=== PATIENT | female | born 1985 | race Caucasian/White ===

== ENCOUNTER 2017-02-02 17:51 | Emergency (ER) | payer OTHER ==
--- NOTE | 2017-02-02 19:41 | ED ORDER SUMMARY ---
..... Patient: GREY BOSTON OrderSheet [facility] VisitID: [id number] [place] [address] 31y, F Registration Date/Time: 02/02/2017 ORDER SHEET Weight: 47.6 kg (stated) Allergies: No Known Drug Allergy GENERAL ORDERS: Chest 2V Urgent (19:05 02/02/2017 HBivens A.R.N.P.) (Ack 19:09 LNations ER Tech1) (19:32 HBivens A.R.N.P.) (Cancelled: Other19:32 HBivens A.R.N.P.) EKG - ER Stat (19:05 02/02/2017 HBivens A.R.N.P.) (Ack 19:05 AMcQuoid ER Tech1) (19:17 LNations ER Tech1) MEDICATION ORDERS: IV FLUIDS: ORDER SHEET NOTES: [Electronically signed by Michaela Bautista (20:17 02/02/2017)] [Electronically signed by Sheeba Winters A.R.N.P. (21:18 02/02/2017)] [Electronically locked/signed by Michaela Bautista (20:17 02/02/2017)]
--- NOTE | 2017-02-02 19:41 | ED ORDER SUMMARY ---
..... Patient: GREY BOSTON OrderSheet [facility] VisitID: [id number] [place] [address] 31y, F Registration Date/Time: 02/02/2017 ORDER SHEET Weight: 47.6 kg (stated) Allergies: No Known Drug Allergy GENERAL ORDERS: Chest 2V Urgent (19:05 02/02/2017 HBivens A.R.N.P.) (Ack 19:09 LNations ER Tech1) (19:32 HBivens A.R.N.P.) (Cancelled: Other19:32 HBivens A.R.N.P.) EKG - ER Stat (19:05 02/02/2017 HBivens A.R.N.P.) (Ack 19:05 AMcQuoid ER Tech1) (19:17 LNations ER Tech1) MEDICATION ORDERS: IV FLUIDS: ORDER SHEET NOTES: [Electronically signed by Michaela Bautista (20:17 02/02/2017)] [Electronically signed by Sheeba Winters A.R.N.P. (21:18 02/02/2017)] [Electronically locked/signed by Michaela Bautista (20:17 02/02/2017)]
--- NOTE | 2017-02-02 19:41 | ED NURSING NOTES ---
Clinical Report - Nurses [facility] [address] [place] [address] 02/02/2017 17:53 Patient: [facility]OSTON [id number] TRIAGE Triage time 17:55 Feb 02 2017. Acuity: LEVEL 4. Chief Complaint: ANXIETY and (Pt states she started having anxiety "earlier today" that causes her abd to shake and tightness around lateral chest.). 18:04 02/02/17. --18:04 AliM 18:06 02/02/17. --18:07 AliM 17:55 02/02/17. BP: 139/95 (small adult cuff) taken on the left arm, via an automated monitor, while lying. HR: 105 (regular). RR: 18 (regular and unlabored). O2 saturation: 100% on room air. Temp: 98.6 F (oral). Pain level now: 02/24. --18:11 AliM. Weight: 47.6 kg stated. Height/Length: 63 inches Per Patient. BMI: 18.6. --17:58 AliM. Medications OxyCODONE HCl Oral (Tablet 15 mg), 2x a day. --18:02 AliM. Allergies No Known Drug Allergy. --18:02 AliM. History Arrived by EMS. Historian: patient. Unaccompanied. Onset: today. 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 PAST MEDICAL HX: Immunizations: up-to-date. --18:04 AliM PAST MEDICAL HX: Last normal menstrual period- 3 weeks ago. SOCIAL HX: Never smoker. No alcohol use or drug use. No infectious disease exposure. ABUSE ASSESSMENT: No report of abuse. SELF HARM ASSESSMENT: A self harm assessment was performed. The patient answered "yes" to the question "Have you recently felt down, depressed, or hopeless?" and "Have you noticed less interest or pleasure in doing things?" and "no" to the question "Do you have thoughts of harming or killing yourself?", "Are you here because you tried to hurt yourself?", "Have you ever tried to hurt yourself before today?", "Have you recently had thoughts about harming or killing others?" and "Do you have any dangerous items in your possession?". The patient reports their behavior. FALL RISK ASSESSMENT: Fall risk assessment completed. No fall risk identified. NUTRITIONAL RISK ASSESSMENT: The nutritional risk assessment revealed no deficiencies. FUNCTIONAL ASSESSMENT: Functional assessment: no impairments noted. LEARNING NEEDS ASSESSMENT: The learning needs assessment revealed no barriers. SKIN INTEGRITY ASSESSMENT: Skin integrity risk assessment completed. No skin integrity risk identified. --18:07 AliM. PROBLEMS: Anxiety. --18:03 AliM Arthritis. --18:03 AliM Depression. --18:07 AliM. ADDITIONAL SURGERIES: None. --18:03 AliM. Interventions ID band on patient. To treatment room. --18:04 AliM. PHYSICAL ASSESSMENT 18:09 02/02/17. To room via stretcher. GENERAL / NEURO / PSYCH: The patient is somnolent, appears anxious and withdrawn and has no smile response. Speech within normal limits. RESPIRATORY: Respirations not labored. CVS: Normal heart rate and rhythm. Capillary refill less than 2 seconds. SKIN: Skin is warm and dry. Skin color is within normal limits. --18:09 AliM. NURSING PROGRESS NOTES 18:10 02/02/17. Pulse oximeter placed on patient; (Pt denied BP monitoring). Patient gowned. Head of bed elevated. Reassurance given. Two patient identifiers checked. Call light placed in reach. Side rails up x 1. Bed placed in lowest position. Brakes of bed on. Patient ready for evaluation- ED physician notified. --18:10 AliM ( EMS pulled this RN out of the room to report they had spent 90 minutes with pt who was found in a car at the [facility], [place]. pt was wax/waning on whether or not she wanted transport. Per EMS pt refused medics 12 lead as well as having her bp taken on scene. enroute pt reported to EMS that she had seen a note that stated 'someone isn't safe' per EMS was pts reason for requesting transport initially.). --18:30 Chelly-Lynsey Mathur R.N. 18:58 02/02/17. The patient reports no complaints and she is resting quietly. SKIN: Skin is warm. Skin is slightly diaphoretic. --18:58 Debbie 18:57 02/02/17. BP: 137/93 taken on the right arm, via an automated monitor, while lying. HR: 109. RR: 16 (regular and unlabored). O2 saturation: 100% on room air. Temp: 98.8 F (oral). Pain level now: 02/24. --18:58 Debbie 19:11. EKG was performed by a tech and shown to the ED physician. --19:18 McQuoid, Malia, ER Tech1. DISPOSITION / DISCHARGE 20:17 02/02/17. Departure time: 20:Feb 02 2017. Condition at departure: improved and stable. No learning barriers present. Discharge instructions provided and reviewed with the patient. Reviewed medication(s) side effects, precautions, dosing and course information. Prescription(s) given to the patient. Patient verbalized understanding. Written instructions provided in Setswana. ( Taught pt that medication may make sleepy, idalia. with hydrocodone. Don't take meds while driving, avoid drinking.). The patient was discharged by the nurse practitioner. She was discharged home and unaccompanied at time of discharge. She left the Emergency Department ambulatory and via private vehicle. Patient driving. FALL RISK ASSESSMENT: Fall risk assessment completed. No fall risk identified. YODIT COMA SCORE: [place] Coma Scale: 15- eyes open spontaneously (4); best verbal response- oriented x 4 (5); best motor response- obeys commands (6). --20:17 Debbie 20:14 02/02/17. BP: 133/97 taken on the left arm, while sitting. HR: 96. RR: 14 (regular and unlabored). O2 saturation: 100% on room air. Temp: 98.7 F (oral). Pain level now: 10. Additional comments: Pt states pain is localized to right lateral chest. --20:17 Debbie. Locked/Released at 02/02/2017 20:17 by Debbie
--- NOTE | 2017-02-02 19:41 | ED NURSING NOTES ---
Clinical Report - Nurses [facility] [address] [place] [address] 02/02/2017 17:53 [id number] Triage time 17:55 Feb 02 2017. Acuity: LEVEL 4. Chief Complaint: ANXIETY and (Pt states she started having anxiety "earlier today" that causes her abd to shake and tightness around lateral chest.). 18:04 02/02/17. --18:04 AliM 18:06 02/02/17. --18:07 AliM 17:55 02/02/17. BP: 139/95 (small adult cuff) taken on the left arm, via an automated monitor, while lying. HR: 105 (regular). RR: 18 (regular and unlabored). O2 saturation: 100% on room air. Temp: 98.6 F (oral). Pain level now: 02/24. --18:11 AliM. Weight: 47.6 kg stated. Height/Length: 63 inches Per Patient. BMI: 18.6. --17:58 AliM. Medications OxyCODONE HCl Oral (Tablet 15 mg), 2x a day. --18:02 AliM. Allergies No Known Drug Allergy. --18:02 AliM. History Arrived by EMS. Historian: patient. Unaccompanied. Onset: today. 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 PAST MEDICAL HX: Immunizations: up-to-date. --18:04 AliM PAST MEDICAL HX: Last normal menstrual period- 3 weeks ago. SOCIAL HX: Never smoker. No alcohol use or drug use. No infectious disease exposure. ABUSE ASSESSMENT: No report of abuse. SELF HARM ASSESSMENT: A self harm assessment was performed. The patient answered "yes" to the question "Have you recently felt down, depressed, or hopeless?" and "Have you noticed less interest or pleasure in doing things?" and "no" to the question "Do you have thoughts of harming or killing yourself?", "Are you here because you tried to hurt yourself?", "Have you ever tried to hurt yourself before today?", "Have you recently had thoughts about harming or killing others?" and "Do you have any dangerous items in your possession?". The patient reports their behavior. FALL RISK ASSESSMENT: Fall risk assessment completed. No fall risk identified. NUTRITIONAL RISK ASSESSMENT: The nutritional risk assessment revealed no deficiencies. FUNCTIONAL ASSESSMENT: Functional assessment: no impairments noted. LEARNING NEEDS ASSESSMENT: The learning needs assessment revealed no barriers. SKIN INTEGRITY ASSESSMENT: Skin integrity risk assessment completed. No skin integrity risk identified. --18:07 AliM. PROBLEMS: Anxiety. --18:03 AliM Arthritis. --18:03 AliM Depression. --18:07 AliM. ADDITIONAL SURGERIES: None. --18:03 AliM. Interventions ID band on patient. To treatment room. --18:04 AliM. PHYSICAL ASSESSMENT 18:09 02/02/17. To room via stretcher. GENERAL / NEURO / PSYCH: The patient is somnolent, appears anxious and withdrawn and has no smile response. Speech within normal limits. RESPIRATORY: Respirations not labored. CVS: Normal heart rate and rhythm. Capillary refill less than 2 seconds. SKIN: Skin is warm and dry. Skin color is within normal limits. --18:09 AliM. NURSING PROGRESS NOTES 18:10 02/02/17. Pulse oximeter placed on patient; (Pt denied BP monitoring). Patient gowned. Head of bed elevated. Reassurance given. Two patient identifiers checked. Call light placed in reach. Side rails up x 1. Bed placed in lowest position. Brakes of bed on. Patient ready for evaluation- ED physician notified. --18:10 AliM ( EMS pulled this RN out of the room to report they had spent 90 minutes with pt who was found in a car at the [facility]. pt was wax/waning on whether or not she wanted transport. Per EMS pt refused medics 12 lead as well as having her bp taken on scene. enroute pt reported to EMS that she had seen a note that stated 'someone isn't safe' per EMS was pts reason for requesting transport initially.). --18:30 Chelly-Lynsey Mathur R.N. 18:58 02/02/17. The patient reports no complaints and she is resting quietly. SKIN: Skin is warm. Skin is slightly diaphoretic. --18:58 Debbie 18:57 02/02/17. BP: 137/93 taken on the right arm, via an automated monitor, while lying. HR: 109. RR: 16 (regular and unlabored). O2 saturation: 100% on room air. Temp: 98.8 F (oral). Pain level now: 02/24. --18:58 Debbie 19:11. EKG was performed by a tech and shown to the ED physician. --19:18 McQuoid, Malia, ER Tech1. DISPOSITION / DISCHARGE 20:17 02/02/17. Departure time: 20:Feb 02 2017. Condition at departure: improved and stable. No learning barriers present. Discharge instructions provided and reviewed with the patient. Reviewed medication(s) side effects, precautions, dosing and course information. Prescription(s) given to the patient. Patient verbalized understanding. Written instructions provided in Latvian. ( Taught pt that medication may make sleepy, idalia. with hydrocodone. Don't take meds while driving, avoid drinking.). The patient was discharged by the nurse practitioner. She was discharged home and unaccompanied at time of discharge. She left the Emergency Department ambulatory and via private vehicle. Patient driving. FALL RISK ASSESSMENT: Fall risk assessment completed. No fall risk identified. YODIT COMA SCORE: [place] Coma Scale: 15- eyes open spontaneously (4); best verbal response- oriented x 4 (5); best motor response- obeys commands (6). --20:17 Debbie 20:14 02/02/17. BP: 133/97 taken on the left arm, while sitting. HR: 96. RR: 14 (regular and unlabored). O2 saturation: 100% on room air. Temp: 98.7 F (oral). Pain level now: 10. Additional comments: Pt states pain is localized to right lateral chest. --20:17 Debbie. Locked/Released at 02/02/2017 20:17 by Debbie
--- NOTE | 2017-02-02 19:41 | ED CLINICAL REPORT ---
Clinical Report - Physicians/Mid Levels [facility] [address] [place] [address] 02/02/2017 17:53 Patient: GREY BOSTON Time Seen: 18:53; initial patient contact, initial documentation, patient care assumed. Arrived- By ambulance. Not in custody. Historian- patient. HISTORY OF PRESENT ILLNESS Chief Complaint: ANXIOUS. This started today. No situational problems or recent drug use or alcohol consumption. She has not exhibited a behavior change, was not found wandering and is compliant with medication. (sitting in car at [employer] parking lot, started having R sided cp and anxiety, cp hurts more to breathe and feels like her diaphragm is hurting, so she had her friend call 911). The patient has had anxiety. No delusions, suicidal thoughts or hallucinations. The symptoms are described as moderate. No injury is present. Similar symptoms previously: Recent medical care: Not recently seen/assessed. REVIEW OF SYSTEMS The patient has had chest pain. All systems otherwise negative, except as recorded above. PAST HISTORY See nurses notes. ( PROBLEMS: Anxiety. --18:03 AliM Arthritis. --18:03 AliM Depression. --18:07 AliM. ADDITIONAL SURGERIES: None. --18:03 AliM.). SOCIAL HISTORY Never smoker. No alcohol use or drug use. Has social support. Has place to stay. FAMILY HISTORY Negative. ADDITIONAL NOTES The nursing notes have been reviewed with agreement regarding the chief complaint, HPI, ROS, PMH and patient medications and allergies. PHYSICAL EXAM Vital Signs: 02/02/2017 17:55 BP: 139/95. HR: 105. RR: 18. O2 saturation: 100%. Temp: 98.6 F. Pain level now: 8/10. Have been reviewed as abnormal and appear to be correct. Blood pressure normal. Tachycardic. Respiratory rate normal. Temperature normal. Oxygen saturation normal. Appearance: Alert. No acute distress. Appearance is normal. Anxious. Eyes: Pupils equal, round and reactive to light. Neck: Normal inspection. Neck supple. CVS: Heart rate / rhythm abnormal. Tachycardia (ventricular rate = 110). Heart sounds normal. Respiratory: Breath sounds normal. Chest nontender. Abdomen: Soft and nontender. Back: No tenderness. Skin: Skin warm and dry. Normal skin color. Normal skin turgor. Extremities: Extremities exhibit normal ROM. No lower extremity edema. Psych / Neuro: Abnormal mood and affect. Speech normal. Cognition normal. Thought process and content normal. Insight and judgement normal. Cranial nerves normal (as tested). No cerebellar findings. No motor deficit. No sensory deficit. LABS, X-RAYS, AND EKG EKG: EKG time: (1910). No acute process. No acute ischemia. Normal EKG. Rate: 90. Normal EKG. The study has been interpreted contemporaneously by me (and dr allan). The EKG appears to be a good tracing. Interpretation time: 1911. PROGRESS AND PROCEDURES Course of Care: called into room after ekg, pt does not want chest xray, tx options discussed, pt stating she no longer feels anxious. Patient counseled in person regarding the patient's stable condition, test results and diagnosis. Differential Diagnosis: Other possible considerations: substance abuse, anxiety, mi, angina. Above considerations are based on history, physical exam, reassessment and EKG. Differential diagnosis was discussed with patient. Disposition: Discharged home in good and improved condition (19:40). Condition: good and stable. CLINICAL IMPRESSION Anxiety reaction. INSTRUCTIONS Warnings: GENERAL WARNINGS: Return or contact your physician immediately if your condition worsens or changes unexpectedly, if not improving as expected, or if other problems arise. Specifically return if problem worsens. Prescription Medications: Xanax 0.25 mg: Take 1 orally every 8 hours as needed for anxiety. Dispense fifteen (15). No refills. Substitution is permissible. Ultram 50 mg tablets: take 1-2 orally every 6 hours as needed for pain. Dispense twenty (20). No refills. Substitution is permissible. Follow-up: Follow up with your doctor in about three days even if well. Call for an appointment. Summary of care provided to patient. Understanding of the discharge instructions verbalized by patient. (Electronically signed by Sheeba Winters A.R.N.P. 02/02/2017 21:18)
--- NOTE | 2017-02-02 21:18 | ED MAR SUMMARY ---
..... Medication Administration Record [facility] [address] [id number] Patient: GREY BOSTON Visit ID: [id number] 31y, F Weight: 47.6 kg Height/Length: 63 in BMI: 18.6 ALLERGIES: No Known Drug Allergy
--- NOTE | 2017-02-02 21:18 | ED MED RECONCILIATION SUMMARY ---
Patient: GREY BOSTON Medication Reconciliation Report [facility] VisitID: [id number] [address] [place] [address] 31y, F Registration Date/Time: 02/02/2017 Weight: 47.6 kg Height/Length: 63 in. BMI: 18.6 ALLERGIES: No Known Drug Allergy The patient's Home Medications are listed below: THE FOLLOWING MEDICATIONS NEED TO BE RECONCILED: OxyCODONE HCl Oral (15 mg), 2x a day The source(s) of the original Home Medication information: Not obtained. The following Medications were given to the patient in the Emergency Department: None. The following Medications were prescribed to the patient: Xanax 0.25 mg: Take 1 orally every 8 hours as needed for anxiety. Dispense fifteen (15). No refills. Substitution is permissible. -- Sheeba Winters, A.R.N.P. Ultram 50 mg tablets: take 1-2 orally every 6 hours as needed for pain. Dispense twenty (20). No refills. Substitution is permissible. -- Sheeba Winters, A.R.N.P.
--- NOTE | 2017-02-02 21:18 | ED DISCHARGE INSTRUCTIONS ---
Patient: GREY BOSTON General Instructions [facility] VisitID: [id number] [place] [address] 31y, F Registration Date/Time: 02/02/2017 Anxiety reaction. INSTRUCTIONS Warnings: GENERAL WARNINGS: Return or contact your physician immediately if your condition worsens or changes unexpectedly, if not improving as expected, or if other problems arise. Specifically return if problem worsens. Prescription Medications: Xanax 0.25 mg: Take 1 orally every 8 hours as needed for anxiety. Dispense fifteen (15). No refills. Substitution is permissible. Ultram 50 mg tablets: take 1-2 orally every 6 hours as needed for pain. Dispense twenty (20). No refills. Substitution is permissible. Follow-up: Follow up with your doctor in about three days even if well. Call for an appointment. Summary of care provided to patient. Understanding of the discharge instructions verbalized by patient. ADDITIONAL INFORMATION Stress Reaction Anxiety is the feeling we all get when we think something bad might happen. It is a normal response to stress and usually causes only a mild reaction. When anxiety becomes more severe, emotions may interfere with daily life. In some cases, you may not even be aware of what it is youre anxious about! During an anxiety reaction, you may feel like you are helpless, nervous, depressed or irritable. Your body may show signs of anxiety in many ways. You may experience dry mouth, shakiness, dizziness, weakness, trouble breathing, chest pressure, headache, nausea, diarrhea, tiredness, inability to sleep or sexual problems. Home Care: 1) Try to locate the sources of stress in your life. They may not be obvious! These may include: -- Daily hassles of life which pile up (traffic jams, missed appointments, car troubles, etc.) -- Major life changes, both good (new baby, job promotion) and bad (loss of job, loss of loved one) -- Overload: feeling that you have too many responsibilities and can't take care of all of them at once -- Feeling helpless, feeling that your problems are beyond what youre able to solve 2) Notice how your body reacts to stress. Learn to listen to your body signals. This will help you take action before the stress becomes severe. 3) When you can, do something about the source of your stress. (Avoid hassles, limit the amount of change that happens in your life at one time and take a break when you feel overloaded). 4) Unfortunately, many stressful situations cannot be avoided. It is necessary to learn HOW TO MANAGE STRESS better. There are many proven methods that will reduce your anxiety. These include simple things like exercise, good nutrition and adequate rest. Also, there are certain techniques that are helpful: relaxation and breathing exercises, visualization, biofeedback and meditation. For more information about this, consult your doctor or go to a local bookstore and review the many books and tapes available on this subject. Follow Up If you feel that your anxiety is not responding to self-help measures, contact your doctor or make an appointment with a counselor. Get Prompt Medical Attention if any of the following occur: -- Your symptoms get worse -- Chest pain or trouble breathing -- Severe headache not relieved by rest and mild pain reliever -- Rapid or irregular heartbeat, fainting Panic Attack A panic attack is an extreme fear reaction that comes on for no apparent reason. Symptoms may include pounding or racing heartbeat, shortness of breath, dizziness, weakness and sweating. There is usually a fear that something terrible will happen or that you may . The attack may last a few minutes up to a few hours. Between attacks things will seem quite normal. This condition has a psychological cause and can be treated with the help of a therapist or psychiatrist. Medication is often used and can be very helpful for this problem. Home Care: Try to identify the sources of stress in your life. It may not be obvious! These may include: Daily hassles of life which pile up (traffic jams, missed appointments, car troubles, etc.). Major life changes, both good (new baby, job promotion) and bad (loss of job, loss of loved one). Overload: feeling that you have too many responsibilities and can't take care of everything at once. Helplessness: feeling like your problems are too much for you to handle. Notice how your body reacts to stress. Learn to listen to your body signals so that you can take action before the stress becomes severe. When possible, AVOID or REDUCE THE CAUSE OF STRESS. Avoid hassles, limit the amount of change that is happening in your life at one time or take a break when you feel overloaded. Unfortunately, many stressful situations cannot be avoided. Therefore, it is necessary to LEARN HOW TO MANAGE STRESS better. There are many proven methods that work and will reduce your anxiety. These include simple things like exercise, good nutrition and adequate rest. Also, there are certain techniques that are helpful: relaxation and breathing exercises, visualization, biofeedback, meditation or simply taking some time-out to clear your mind. For more information about this, consult your doctor or go to a local bookstore and review the many books and tapes available on this subject. Follow Up with your doctor or a therapist as advised. Get Prompt Medical Attention if any of the following occur: Worsening of your symptoms to the point of feeling [id number] A change in the type of pain: if it feels different, becomes more severe, lasts longer, or begins to spread into your shoulder, arm, neck, jaw or back Shortness of breath or increased pain with breathing Increasing feeling of weakness or dizziness Fainting Cough with dark colored sputum (phlegm) or blood Fever of 100.4F (38C) or higher, or as directed by your healthcare provider Swelling, pain or redness in one leg Alprazolam Oral tablet What is this medicine? ALPRAZOLAM (al PRAY donovan torres) is a benzodiazepine. It is used to treat anxiety and panic attacks. How should I use this medicine? Take this medicine by mouth with a glass of water. Follow the directions on the prescription label. Take your medicine at regular intervals. Do not take it more often than directed. If you have been taking this medicine regularly for some time, do not suddenly stop taking it. You must gradually reduce the dose or you may get severe side effects. Ask your doctor or health reservoir caretaker for advice. Even after you stop taking this medicine it can still affect your body for several days. Talk to your swim coach regarding the use of this medicine in children. Special care may be needed. What side effects may I notice from receiving this medicine? Side effects that you should report to your doctor or health reservoir caretaker as soon as possible: allergic reactions like skin rash, itching or hives, swelling of the face, lips, or tongue confusion, forgetfulness depression difficulty sleeping difficulty speaking feeling faint or lightheaded, falls mood changes, excitability or aggressive behavior muscle cramps trouble passing urine or change in the amount of urine unusually weak or tired Side effects that usually do not require medical attention (report to your doctor or health reservoir caretaker if they continue or are bothersome): change in sex drive or performance changes in appetite What may interact with this medicine? Do not take this medicine with any of the following medications: certain medicines for HIV infection or AIDS ketoconazole itraconazole This medicine may also interact with the following medications: control pills certain macrolide antibiotics like clarithromycin, erythromycin, troleandomycin cimetidine cyclosporine ergotamine grapefruit juice herbal or dietary supplements like kava kava, melatonin, dehydroepiandrosterone, DHEA, Trip's Wort or valerian imatinib, [id number] isoniazid levodopa medicines for depression, anxiety, or psychotic disturbances prescription pain medicines rifampin, rifapentine, or rifabutin some medicines for blood pressure or heart problems some medicines for seizures like carbamazepine, oxcarbazepine, phenobarbital, phenytoin, primidone What if I miss a dose? If you miss a dose, take it as soon as you can. If it is almost time for your next dose, take only that dose. Do not take double or extra doses. Where should I keep my medicine? Keep out of the reach of children. This medicine can be abused. Keep your medicine in a safe place to protect it from theft. Do not share this medicine with anyone. Selling or giving away this medicine is dangerous and against the law. Store at room temperature between 20 and 25 degrees C (68 and 77 degrees F). Throw away any unused medicine after the expiration date. What should I tell my health care provider before I take this medicine? They need to know if you have any of these conditions: an alcohol or drug abuse problem bipolar disorder, depression, psychosis or other mental health conditions glaucoma kidney or liver disease lung or breathing disease myasthenia gravis Parkinson's disease porphyria seizures or a history of seizures suicidal thoughts an unusual or allergic reaction to alprazolam, other benzodiazepines, foods, dyes, or preservatives or trying to get breast-feeding What should I watch for while using this medicine? Visit your doctor or health reservoir caretaker for regular checks on your progress. Your body can become dependent on this medicine. Ask your doctor or health reservoir caretaker if you still need to take it. You may get drowsy or dizzy. Do not drive, use machinery, or do anything that needs mental alertness until you know how this medicine affects you. To reduce the risk of dizzy and fainting spells, do not stand or sit up quickly, especially if you are an older patient. Alcohol may increase dizziness and drowsiness. Avoid alcoholic drinks. Do not treat yourself for coughs, colds or allergies without asking your doctor or health reservoir caretaker for advice. Some ingredients can increase possible side effects. Tramadol Hydrochloride Oral tablet What is this medicine? TRAMADOL (TRA ma dole) is a pain reliever. It is used to treat moderate to severe pain in adults. How should I use this medicine? Take this medicine by mouth with a full glass of water. Follow the directions on the prescription label. If the medicine upsets your stomach, take it with food or milk. Do not take more medicine than you are told to take. Talk to your swim coach regarding the use of this medicine in children. Special care may be needed. What side effects may I notice from receiving this medicine? Side effects that you should report to your doctor or health reservoir caretaker as soon as possible: allergic reactions like skin rash, itching or hives, swelling of the face, lips, or tongue breathing difficulties, wheezing confusion itching light headedness or fainting spells redness, blistering, peeling or loosening of the skin, including inside the mouth seizures Side effects that usually do not require medical attention (report to your doctor or health reservoir caretaker if they continue or are bothersome): constipation dizziness drowsiness headache nausea, vomiting What may interact with this medicine? Do not take this medicine with any of the following medications: MAOIs like Carbex, Eldepryl, Marplan, Nardil, and Parnate This medicine may also interact with the following medications: alcohol or medicines that contain alcohol antihistamines benzodiazepines bupropion carbamazepine or oxcarbazepine clozapine cyclobenzaprine digoxin furazolidone linezolid medicines for depression, anxiety, or psychotic disturbances medicines for migraine headache like almotriptan, eletriptan, frovatriptan, naratriptan, rizatriptan, sumatriptan, zolmitriptan medicines for pain like pentazocine, buprenorphine, butorphanol, meperidine, nalbuphine, and propoxyphene medicines for sleep muscle relaxants naltrexone phenobarbital phenothiazines like perphenazine, thioridazine, chlorpromazine, mesoridazine, fluphenazine, prochlorperazine, promazine, and trifluoperazine procarbazine warfarin What if I miss a dose? If you miss a dose, take it as soon as you can. If it is almost time for your next dose, take only that dose. Do not take double or extra doses. Where should I keep my medicine? Keep out of the reach of children. Store at room temperature between 15 and 30 degrees C (59 and 86 degrees F). Keep container tightly closed. Throw away any unused medicine after the expiration date. What should I tell my health care provider before I take this medicine? They need to know if you have any of these conditions: brain tumor depression drug abuse or addiction head injury if you frequently drink alcohol containing drinks kidney disease or trouble passing urine liver disease lung disease, asthma, or breathing problems seizures or epilepsy suicidal thoughts, plans, or attempt; a previous suicide attempt by you or a family member an unusual or allergic reaction to tramadol, codeine, other medicines, foods, dyes, or preservatives or trying to get breast-feeding What should I watch for while using this medicine? Tell your doctor or health reservoir caretaker if your pain does not go away, if it gets worse, or if you have new or a different type of pain. You may develop tolerance to the medicine. Tolerance means that you will need a higher dose of the medicine for pain relief. Tolerance is normal and is expected if you take this medicine for a long time. Do not suddenly stop taking your medicine because you may develop a severe reaction. Your body becomes used to the medicine. This does NOT mean you are addicted. Addiction is a behavior related to getting and using a drug for a non-medical reason. If you have pain, you have a medical reason to take pain medicine. Your doctor will tell you how much medicine to take. If your doctor wants you to stop the medicine, the dose will be slowly lowered over time to avoid any side effects. You may get drowsy or dizzy. Do not drive, use machinery, or do anything that needs mental alertness until you know how this medicine affects you. Do not stand or sit up quickly, especially if you are an older patient. This reduces the risk of dizzy or fainting spells. Alcohol can increase or decrease the effects of this medicine. Avoid alcoholic drinks. You may have constipation. Try to have a bowel movement at least every 2 to 3 days. If you do not have a bowel movement for 3 days, call your doctor or health reservoir caretaker. Your mouth may get dry. Chewing sugarless gum or sucking hard candy, and drinking plenty of water may help. Contact your doctor if the problem does not go away or is severe. You have been given the following additional information: Anxiety Reaction Panic Attack Alprazolam Oral tablet Tramadol Hydrochloride Oral tablet (Electronically signed by Sheeba Winters A.R.N.P. 02/02/2017 21:18)
--- NOTE | 2017-02-02 21:18 | ED MED RECONCILIATION SUMMARY ---
Patient: GREY BOSTON Medication Reconciliation Report [facility] VisitID: [id number] [address] [place] [address] 31y, F Registration Date/Time: 02/02/2017 Weight: 47.6 kg Height/Length: 63 in. BMI: 18.6 ALLERGIES: No Known Drug Allergy The patient's Home Medications are listed below: THE FOLLOWING MEDICATIONS NEED TO BE RECONCILED: OxyCODONE HCl Oral (15 mg), 2x a day The source(s) of the original Home Medication information: Not obtained. The following Medications were given to the patient in the Emergency Department: None. The following Medications were prescribed to the patient: Xanax 0.25 mg: Take 1 orally every 8 hours as needed for anxiety. Dispense fifteen (15). No refills. Substitution is permissible. -- Sheeba Winters, A.R.N.P. Ultram 50 mg tablets: take 1-2 orally every 6 hours as needed for pain. Dispense twenty (20). No refills. Substitution is permissible. -- Sheeba Winters, A.R.N.P.
--- NOTE | 2017-02-02 21:18 | ED DISCHARGE INSTRUCTIONS ---
Patient: GREY BOSTON General Instructions [facility] VisitID: [id number] [place] [address] 31y, F Registration Date/Time: 02/02/2017 Anxiety reaction. INSTRUCTIONS Warnings: GENERAL WARNINGS: Return or contact your physician immediately if your condition worsens or changes unexpectedly, if not improving as expected, or if other problems arise. Specifically return if problem worsens. Prescription Medications: Xanax 0.25 mg: Take 1 orally every 8 hours as needed for anxiety. Dispense fifteen (15). No refills. Substitution is permissible. Ultram 50 mg tablets: take 1-2 orally every 6 hours as needed for pain. Dispense twenty (20). No refills. Substitution is permissible. Follow-up: Follow up with your doctor in about three days even if well. Call for an appointment. Summary of care provided to patient. Understanding of the discharge instructions verbalized by patient. ADDITIONAL INFORMATION Stress Reaction Anxiety is the feeling we all get when we think something bad might happen. It is a normal response to stress and usually causes only a mild reaction. When anxiety becomes more severe, emotions may interfere with daily life. In some cases, you may not even be aware of what it is youre anxious about! During an anxiety reaction, you may feel like you are helpless, nervous, depressed or irritable. Your body may show signs of anxiety in many ways. You may experience dry mouth, shakiness, dizziness, weakness, trouble breathing, chest pressure, headache, nausea, diarrhea, tiredness, inability to sleep or sexual problems. Home Care: 1) Try to locate the sources of stress in your life. They may not be obvious! These may include: -- Daily hassles of life which pile up (traffic jams, missed appointments, car troubles, etc.) -- Major life changes, both good (new baby, job promotion) and bad (loss of job, loss of loved one) -- Overload: feeling that you have too many responsibilities and can't take care of all of them at once -- Feeling helpless, feeling that your problems are beyond what youre able to solve 2) Notice how your body reacts to stress. Learn to listen to your body signals. This will help you take action before the stress becomes severe. 3) When you can, do something about the source of your stress. (Avoid hassles, limit the amount of change that happens in your life at one time and take a break when you feel overloaded). 4) Unfortunately, many stressful situations cannot be avoided. It is necessary to learn HOW TO MANAGE STRESS better. There are many proven methods that will reduce your anxiety. These include simple things like exercise, good nutrition and adequate rest. Also, there are certain techniques that are helpful: relaxation and breathing exercises, visualization, biofeedback and meditation. For more information about this, consult your doctor or go to a local bookstore and review the many books and tapes available on this subject. Follow Up If you feel that your anxiety is not responding to self-help measures, contact your doctor or make an appointment with a counselor. Get Prompt Medical Attention if any of the following occur: -- Your symptoms get worse -- Chest pain or trouble breathing -- Severe headache not relieved by rest and mild pain reliever -- Rapid or irregular heartbeat, fainting Panic Attack A panic attack is an extreme fear reaction that comes on for no apparent reason. Symptoms may include pounding or racing heartbeat, shortness of breath, dizziness, weakness and sweating. There is usually a fear that something terrible will happen or that you may . The attack may last a few minutes up to a few hours. Between attacks things will seem quite normal. This condition has a psychological cause and can be treated with the help of a therapist or psychiatrist. Medication is often used and can be very helpful for this problem. Home Care: Try to identify the sources of stress in your life. It may not be obvious! These may include: Daily hassles of life which pile up (traffic jams, missed appointments, car troubles, etc.). Major life changes, both good (new baby, job promotion) and bad (loss of job, loss of loved one). Overload: feeling that you have too many responsibilities and can't take care of everything at once. Helplessness: feeling like your problems are too much for you to handle. Notice how your body reacts to stress. Learn to listen to your body signals so that you can take action before the stress becomes severe. When possible, AVOID or REDUCE THE CAUSE OF STRESS. Avoid hassles, limit the amount of change that is happening in your life at one time or take a break when you feel overloaded. Unfortunately, many stressful situations cannot be avoided. Therefore, it is necessary to LEARN HOW TO MANAGE STRESS better. There are many proven methods that work and will reduce your anxiety. These include simple things like exercise, good nutrition and adequate rest. Also, there are certain techniques that are helpful: relaxation and breathing exercises, visualization, biofeedback, meditation or simply taking some time-out to clear your mind. For more information about this, consult your doctor or go to a local bookstore and review the many books and tapes available on this subject. Follow Up with your doctor or a therapist as advised. Get Prompt Medical Attention if any of the following occur: Worsening of your symptoms to the point of feeling [id number] A change in the type of pain: if it feels different, becomes more severe, lasts longer, or begins to spread into your shoulder, arm, neck, jaw or back Shortness of breath or increased pain with breathing Increasing feeling of weakness or dizziness Fainting Cough with dark colored sputum (phlegm) or blood Fever of 100.4F (38C) or higher, or as directed by your healthcare provider Swelling, pain or redness in one leg Alprazolam Oral tablet What is this medicine? ALPRAZOLAM (al PRAY donovan torres) is a benzodiazepine. It is used to treat anxiety and panic attacks. How should I use this medicine? Take this medicine by mouth with a glass of water. Follow the directions on the prescription label. Take your medicine at regular intervals. Do not take it more often than directed. If you have been taking this medicine regularly for some time, do not suddenly stop taking it. You must gradually reduce the dose or you may get severe side effects. Ask your doctor or health resident care aide for advice. Even after you stop taking this medicine it can still affect your body for several days. Talk to your principal solutions architect regarding the use of this medicine in children. Special care may be needed. What side effects may I notice from receiving this medicine? Side effects that you should report to your doctor or health resident care aide as soon as possible: allergic reactions like skin rash, itching or hives, swelling of the face, lips, or tongue confusion, forgetfulness depression difficulty sleeping difficulty speaking feeling faint or lightheaded, falls mood changes, excitability or aggressive behavior muscle cramps trouble passing urine or change in the amount of urine unusually weak or tired Side effects that usually do not require medical attention (report to your doctor or health resident care aide if they continue or are bothersome): change in sex drive or performance changes in appetite What may interact with this medicine? Do not take this medicine with any of the following medications: certain medicines for HIV infection or AIDS ketoconazole itraconazole This medicine may also interact with the following medications: control pills certain macrolide antibiotics like clarithromycin, erythromycin, troleandomycin cimetidine cyclosporine ergotamine grapefruit juice herbal or dietary supplements like kava kava, melatonin, dehydroepiandrosterone, DHEA, Trip's Wort or valerian imatinib, STI-[id number] isoniazid levodopa medicines for depression, anxiety, or psychotic disturbances prescription pain medicines rifampin, rifapentine, or rifabutin some medicines for blood pressure or heart problems some medicines for seizures like carbamazepine, oxcarbazepine, phenobarbital, phenytoin, primidone What if I miss a dose? If you miss a dose, take it as soon as you can. If it is almost time for your next dose, take only that dose. Do not take double or extra doses. Where should I keep my medicine? Keep out of the reach of children. This medicine can be abused. Keep your medicine in a safe place to protect it from theft. Do not share this medicine with anyone. Selling or giving away this medicine is dangerous and against the law. Store at room temperature between 20 and 25 degrees C (68 and 77 degrees F). Throw away any unused medicine after the expiration date. What should I tell my health care provider before I take this medicine? They need to know if you have any of these conditions: an alcohol or drug abuse problem bipolar disorder, depression, psychosis or other mental health conditions glaucoma kidney or liver disease lung or breathing disease myasthenia gravis Parkinson's disease porphyria seizures or a history of seizures suicidal thoughts an unusual or allergic reaction to alprazolam, other benzodiazepines, foods, dyes, or preservatives or trying to get breast-feeding What should I watch for while using this medicine? Visit your doctor or health resident care aide for regular checks on your progress. Your body can become dependent on this medicine. Ask your doctor or health resident care aide if you still need to take it. You may get drowsy or dizzy. Do not drive, use machinery, or do anything that needs mental alertness until you know how this medicine affects you. To reduce the risk of dizzy and fainting spells, do not stand or sit up quickly, especially if you are an older patient. Alcohol may increase dizziness and drowsiness. Avoid alcoholic drinks. Do not treat yourself for coughs, colds or allergies without asking your doctor or health resident care aide for advice. Some ingredients can increase possible side effects. Tramadol Hydrochloride Oral tablet What is this medicine? TRAMADOL (TRA ma dole) is a pain reliever. It is used to treat moderate to severe pain in adults. How should I use this medicine? Take this medicine by mouth with a full glass of water. Follow the directions on the prescription label. If the medicine upsets your stomach, take it with food or milk. Do not take more medicine than you are told to take. Talk to your principal solutions architect regarding the use of this medicine in children. Special care may be needed. What side effects may I notice from receiving this medicine? Side effects that you should report to your doctor or health resident care aide as soon as possible: allergic reactions like skin rash, itching or hives, swelling of the face, lips, or tongue breathing difficulties, wheezing confusion itching light headedness or fainting spells redness, blistering, peeling or loosening of the skin, including inside the mouth seizures Side effects that usually do not require medical attention (report to your doctor or health resident care aide if they continue or are bothersome): constipation dizziness drowsiness headache nausea, vomiting What may interact with this medicine? Do not take this medicine with any of the following medications: MAOIs like Carbex, Eldepryl, Marplan, Nardil, and Parnate This medicine may also interact with the following medications: alcohol or medicines that contain alcohol antihistamines benzodiazepines bupropion carbamazepine or oxcarbazepine clozapine cyclobenzaprine digoxin furazolidone linezolid medicines for depression, anxiety, or psychotic disturbances medicines for migraine headache like almotriptan, eletriptan, frovatriptan, naratriptan, rizatriptan, sumatriptan, zolmitriptan medicines for pain like pentazocine, buprenorphine, butorphanol, meperidine, nalbuphine, and propoxyphene medicines for sleep muscle relaxants naltrexone phenobarbital phenothiazines like perphenazine, thioridazine, chlorpromazine, mesoridazine, fluphenazine, prochlorperazine, promazine, and trifluoperazine procarbazine warfarin What if I miss a dose? If you miss a dose, take it as soon as you can. If it is almost time for your next dose, take only that dose. Do not take double or extra doses. Where should I keep my medicine? Keep out of the reach of children. Store at room temperature between 15 and 30 degrees C (59 and 86 degrees F). Keep container tightly closed. Throw away any unused medicine after the expiration date. What should I tell my health care provider before I take this medicine? They need to know if you have any of these conditions: brain tumor depression drug abuse or addiction head injury if you frequently drink alcohol containing drinks kidney disease or trouble passing urine liver disease lung disease, asthma, or breathing problems seizures or epilepsy suicidal thoughts, plans, or attempt; a previous suicide attempt by you or a family member an unusual or allergic reaction to tramadol, codeine, other medicines, foods, dyes, or preservatives or trying to get breast-feeding What should I watch for while using this medicine? Tell your doctor or health resident care aide if your pain does not go away, if it gets worse, or if you have new or a different type of pain. You may develop tolerance to the medicine. Tolerance means that you will need a higher dose of the medicine for pain relief. Tolerance is normal and is expected if you take this medicine for a long time. Do not suddenly stop taking your medicine because you may develop a severe reaction. Your body becomes used to the medicine. This does NOT mean you are addicted. Addiction is a behavior related to getting and using a drug for a non-medical reason. If you have pain, you have a medical reason to take pain medicine. Your doctor will tell you how much medicine to take. If your doctor wants you to stop the medicine, the dose will be slowly lowered over time to avoid any side effects. You may get drowsy or dizzy. Do not drive, use machinery, or do anything that needs mental alertness until you know how this medicine affects you. Do not stand or sit up quickly, especially if you are an older patient. This reduces the risk of dizzy or fainting spells. Alcohol can increase or decrease the effects of this medicine. Avoid alcoholic drinks. You may have constipation. Try to have a bowel movement at least every 2 to 3 days. If you do not have a bowel movement for 3 days, call your doctor or health resident care aide. Your mouth may get dry. Chewing sugarless gum or sucking hard candy, and drinking plenty of water may help. Contact your doctor if the problem does not go away or is severe. You have been given the following additional information: Anxiety Reaction Panic Attack Alprazolam Oral tablet Tramadol Hydrochloride Oral tablet (Electronically signed by Sheeba Winters A.R.N.P. 02/02/2017 21:18)
--- NOTE | 2017-02-02 21:18 | ED MAR SUMMARY ---
..... Medication Administration Record [facility] [address], [place] [id number] Patient: GREY BOSTON Visit ID: [id number] 31y, F Weight: 47.6 kg Height/Length: 63 in BMI: 18.6 ALLERGIES: No Known Drug Allergy
== END 2017-02-02 20:15 | disposition home or self-care (01) ==
LOC: ED SRH 17:51
DX: F41.1 Generalized anxiety disorder (principal)

== ENCOUNTER 2017-02-02 21:48 | Emergency (ER) | payer OTHER ==
--- NOTE | 2017-02-03 00:47 | ED CLINICAL REPORT ---
Clinical Report - Physicians/Mid Levels [facility] [address] [place] [address] 02/02/2017 21:49 Patient: GREY BOSTON Time Seen: 2155; initial patient contact, initial documentation, patient care assumed. Arrived- By private vehicle. Historian- patient. RETURN VISIT: recently seen in this ED by me. Seen now for the same problem as before. HISTORY OF PRESENT ILLNESS Chief Complaint: ( anxiety). This started just prior to arrival and is still present. It was abrupt in onset and has been intermittent. No current or associated symptoms. (sitting lobby, here after her dc, waiting her ride, started to have anxiety again, and checked herself back in, r/o sharp R sided rib pain that is reproduceable with breathing and movement and talking). Similar symptoms previously: Frequently, as bad. Recent medical care: The patient was seen recently at this facility in the emergency department. REVIEW OF SYSTEMS All systems otherwise negative, except as recorded above. PAST HISTORY See nurses notes. PROBLEMS: Anxiety Reaction. Depression. Arthritis. Anxiety. --21:57 Chelsi Infante R.N. ADDITIONAL SURGERIES: None. --21:57 Chelsi Infante R.N. SOCIAL HISTORY Never smoker. No alcohol use or drug use. No recent travel. Is a local resident. FAMILY HISTORY Negative. ADDITIONAL NOTES The nursing notes have been reviewed with agreement regarding the chief complaint, HPI, ROS, PMH and patient medications and allergies. PHYSICAL EXAM Vital Signs: 02/02/2017 21:56 BP: 139/91. HR: 98. RR: 18. O2 saturation: 99%. Temp: 98.4 F. Pain level now: 9/10. Have been reviewed as abnormal and appear to be correct. Hypertensive. Heart rate normal. Respiratory rate normal. Temperature normal. Oxygen saturation normal. Appearance: Alert. No acute distress. Anxious. Eyes: Pupils equal, round and reactive to light. Eyes normal inspection. Neck: Normal inspection. Neck supple. CVS: Normal heart rate and rhythm. Heart sounds normal. Pulses normal. Respiratory: No respiratory distress. Breath sounds normal. Chest nontender. Abdomen: No visible injury. Soft and nontender. Back: Normal inspection. Skin: Skin warm and dry. Normal skin color. No rash. Normal skin turgor. Extremities: Extremities exhibit normal ROM. No lower extremity edema. Neuro: Oriented X 3. No motor deficit. No sensory deficit. PROGRESS AND PROCEDURES Course of Care: tx options discussed, again, offered pt anxiety meds, again, pt declined saying she was light weight and didn't handle those meds well, offered pain med, pt agreed to do that, encouraged to get her rx filled and f/u, discussed doing xray, pt still does not want xray and still worried about cost, informed pt that she would now have two er visits, pt thought this visit would be included on prior one nurse reporting pt eloped before getting toradol injection. Differential Diagnosis: Other possible considerations: substance abuse, anxiety. Above considerations are based on history and physical exam. Differential diagnosis was discussed with patient. CLINICAL IMPRESSION Anxiety reaction. (Electronically signed by Sheeba Winters A.R.N.P. 02/02/2017 23:16)
--- NOTE | 2017-02-03 00:48 | ED DISCHARGE INSTRUCTIONS ---
Patient: GREY BOSTON General Instructions [facility] VisitID: [id number] [place] [address] 31y, F Registration Date/Time: 02/02/2017 Anxiety reaction. ADDITIONAL INFORMATION Stress Reaction Anxiety is the feeling we all get when we think something bad might happen. It is a normal response to stress and usually causes only a mild reaction. When anxiety becomes more severe, emotions may interfere with daily life. In some cases, you may not even be aware of what it is youre anxious about! During an anxiety reaction, you may feel like you are helpless, nervous, depressed or irritable. Your body may show signs of anxiety in many ways. You may experience dry mouth, shakiness, dizziness, weakness, trouble breathing, chest pressure, headache, nausea, diarrhea, tiredness, inability to sleep or sexual problems. Home Care: 1) Try to locate the sources of stress in your life. They may not be obvious! These may include: -- Daily hassles of life which pile up (traffic jams, missed appointments, car troubles, etc.) -- Major life changes, both good (new baby, job promotion) and bad (loss of job, loss of loved one) -- Overload: feeling that you have too many responsibilities and can't take care of all of them at once -- Feeling helpless, feeling that your problems are beyond what youre able to solve 2) Notice how your body reacts to stress. Learn to listen to your body signals. This will help you take action before the stress becomes severe. 3) When you can, do something about the source of your stress. (Avoid hassles, limit the amount of change that happens in your life at one time and take a break when you feel overloaded). 4) Unfortunately, many stressful situations cannot be avoided. It is necessary to learn HOW TO MANAGE STRESS better. There are many proven methods that will reduce your anxiety. These include simple things like exercise, good nutrition and adequate rest. Also, there are certain techniques that are helpful: relaxation and breathing exercises, visualization, biofeedback and meditation. For more information about this, consult your doctor or go to a local bookstore and review the many books and tapes available on this subject. Follow Up If you feel that your anxiety is not responding to self-help measures, contact your doctor or make an appointment with a counselor. Get Prompt Medical Attention if any of the following occur: -- Your symptoms get worse -- Chest pain or trouble breathing -- Severe headache not relieved by rest and mild pain reliever -- Rapid or irregular heartbeat, fainting You have been given the following additional information: Anxiety Reaction (Electronically signed by Sheeba Winters A.R.N.P. 02/02/2017 23:16)
--- NOTE | 2017-02-03 00:48 | ED ORDER SUMMARY ---
..... Patient: GREY BOSTON OrderSheet [facility] VisitID: [id number] [address] [place] [address] 31y, F Registration Date/Time: 02/02/2017 ORDER SHEET Weight: 47.6 kg (stated) Allergies: No Known Drug Allergy GENERAL ORDERS: MEDICATION ORDERS: Toradol IM 60 mg (NOW) (22:17 02/02/2017 HBivens A.R.N.P.) (Ack 22:32 JSalcons R.N.) (Cancelled: Patient Left22:39 Aartis R.N.) IV FLUIDS: ORDER SHEET NOTES: [Electronically signed by Sheeba WintersR.N.P. (23:16 02/02/2017)] [Electronically signed by Chelsi Infante R.N. (00:47 02/03/2017)] [Electronically locked/signed by Chelsi Infante R.N. (00:47 02/03/2017)]
--- NOTE | 2017-02-03 00:48 | ED NURSING NOTES ---
Clinical Report - Nurses [facility] [address] [place] [address] 02/02/2017 21:49 [id number] Triage time 21:56 Feb 02 2017. Acuity: LEVEL 3. Chief Complaint: (Rights side of chest hurting, patient states when she lifts her arms it creates pain and with breathing). 22:02 02/02/17. SEPSIS SCREEN: Sepsis Screen. Negative (no infection suspected/documented). YODIT COMA SCORE: [place] Coma Scale: 15- eyes open spontaneously (4); best verbal response- oriented x 4 (5); best motor response- obeys commands (6). --22:02 Chelsi Infante R.N. 21:56 02/02/17. BP: 139/91 (regular adult cuff) taken on the left arm, while sitting. HR: 98. RR: 18. O2 saturation: 99% on room air. Temp: 98.4 F (oral). Pain level now: 03/27. --22:02 Chesli Infante R.N. Weight: 47.6 kg stated. Height/Length: 63 inches Per Patient. BMI: 18.6. --22:02 Chelsi Infante R.N. Medications OxyCODONE HCl Oral (Tablet 15 mg), 2x a day. --21:57 Chelsi Infante R.N. Allergies No Known Drug Allergy. --21:57 Chelsi Infante R.N. History Historian: patient. This started just prior to arrival. ( Patient waiting for ride and wanted to be seen again for pain). 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 PAST MEDICAL HX: Immunizations: up-to-date. Last normal menstrual period was 3 weeks ago- weeks ago. SOCIAL HX: Never smoker. No alcohol use or drug use. No infectious disease exposure. ABUSE ASSESSMENT: No report of abuse. SELF HARM ASSESSMENT: A self harm assessment was performed. The patient answered "no" to the question "Do you have thoughts of harming or killing yourself?" and "Have you recently had thoughts about harming or killing others?". --22:02 Chelsi Infante R.N. PROBLEMS: Anxiety Reaction. Depression. Arthritis. Anxiety. --21:57 Chelsi Infante R.N. ADDITIONAL SURGERIES: None. --21:57 Chelsi Infante R.N. Interventions ID band on patient. To treatment room. --22:02 Chelsi Infante R.N. PHYSICAL ASSESSMENT 22:02 02/02/17. Ambulatory to room. GENERAL / NEURO / PSYCH: Alert. Oriented X 4. Appears in no acute distress. HEENT: Pupils equal, round and reactive to light. No facial asymmetry noted. Mucous membranes are pink. RESPIRATORY: Respirations not labored. Chest nontender. Breath sounds within normal limits. CVS: Normal sinus rhythm noted. Capillary refill less than 2 seconds. Pulses within normal limits. GI / : Abdomen soft and nontender and normal bowel sounds. SKIN: Skin intact. Skin is warm and dry. Normal skin turgor. --22:02 Chelsi Infante R.N. DISPOSITION / DISCHARGE 22:39 02/02/17. The patient left the Emergency Department without completion of treatment; (Left prior to pain med injection). The patient appears to be alert and oriented x4. Gown found on bed. Unable to locate patient. The patient eloped. --22:39 Chelsi Infante R.N. late entry - 22:39 02/02/17. ( Went to give Toradol and patients gown was left on bed and patient gone, she was pretty hesitant to get more treatment, she just wanted to make sure she was ok, so she came back in to be evaluated again.). --00:47 Chelsi Infante R.N. Locked/Released at 02/03/2017 0:47 by Chelsi Infante R.N.
--- NOTE | 2017-02-03 00:48 | ED MAR SUMMARY ---
..... Medication Administration Record [facility] [address] [id number] Patient: GREY BOSTON Visit ID: [id number] 31y, F Weight: 47.6 kg Height/Length: 63 in BMI: 18.6 ALLERGIES: No Known Drug Allergy
--- NOTE | 2017-02-03 00:48 | ED MED RECONCILIATION SUMMARY ---
Patient: GREY BOSTON Medication Reconciliation Report [facility] VisitID: [id number] [address] [place] [address] 31y, F Registration Date/Time: 02/02/2017 Weight: 47.6 kg Height/Length: 63 in. BMI: 18.6 ALLERGIES: No Known Drug Allergy The patient's Home Medications are listed below: THE FOLLOWING MEDICATIONS NEED TO BE RECONCILED: OxyCODONE HCl Oral (15 mg), 2x a day The source(s) of the original Home Medication information: Not obtained. The following Medications were given to the patient in the Emergency Department: None. The following Medications were prescribed to the patient: None.
--- NOTE | 2017-02-03 00:48 | ED NURSING NOTES ---
Clinical Report - Nurses [facility] [address] [place] [address] 02/02/2017 21:49 [id number] Triage time 21:56 Feb 02 2017. Acuity: LEVEL 3. Chief Complaint: (Rights side of chest hurting, patient states when she lifts her arms it creates pain and with breathing). 22:02 02/02/17. SEPSIS SCREEN: Sepsis Screen. Negative (no infection suspected/documented). YODIT COMA SCORE: [place] Coma Scale: 15- eyes open spontaneously (4); best verbal response- oriented x 4 (5); best motor response- obeys commands (6). --22:02 Chelsi Infante R.N. 21:56 02/02/17. BP: 139/91 (regular adult cuff) taken on the left arm, while sitting. HR: 98. RR: 18. O2 saturation: 99% on room air. Temp: 98.4 F (oral). Pain level now: 03/27. --22:02 Chelsi Infante R.N. Weight: 47.6 kg stated. Height/Length: 63 inches Per Patient. BMI: 18.6. --22:02 Chelsi Infante R.N. Medications OxyCODONE HCl Oral (Tablet 15 mg), 2x a day. --21:57 Chelsi Infante R.N. Allergies No Known Drug Allergy. --21:57 Chelsi Infante R.N. History Historian: patient. This started just prior to arrival. ( Patient waiting for ride and wanted to be seen again for pain). 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 PAST MEDICAL HX: Immunizations: up-to-date. Last normal menstrual period was 3 weeks ago- weeks ago. SOCIAL HX: Never smoker. No alcohol use or drug use. No infectious disease exposure. ABUSE ASSESSMENT: No report of abuse. SELF HARM ASSESSMENT: A self harm assessment was performed. The patient answered "no" to the question "Do you have thoughts of harming or killing yourself?" and "Have you recently had thoughts about harming or killing others?". --22:02 Chelsi Infante R.N. PROBLEMS: Anxiety Reaction. Depression. Arthritis. Anxiety. --21:57 Chelsi Infante R.N. ADDITIONAL SURGERIES: None. --21:57 Chelsi Infante R.N. Interventions ID band on patient. To treatment room. --22:02 Chelsi Infante R.N. PHYSICAL ASSESSMENT 22:02 02/02/17. Ambulatory to room. GENERAL / NEURO / PSYCH: Alert. Oriented X 4. Appears in no acute distress. HEENT: Pupils equal, round and reactive to light. No facial asymmetry noted. Mucous membranes are pink. RESPIRATORY: Respirations not labored. Chest nontender. Breath sounds within normal limits. CVS: Normal sinus rhythm noted. Capillary refill less than 2 seconds. Pulses within normal limits. GI / : Abdomen soft and nontender and normal bowel sounds. SKIN: Skin intact. Skin is warm and dry. Normal skin turgor. --22:02 Chelsi Infante R.N. DISPOSITION / DISCHARGE 22:39 02/02/17. The patient left the Emergency Department without completion of treatment; (Left prior to pain med injection). The patient appears to be alert and oriented x4. Gown found on bed. Unable to locate patient. The patient eloped. --22:39 Chelsi Infante R.N. late entry - 22:39 02/02/17. ( Went to give Toradol and patients gown was left on bed and patient gone, she was pretty hesitant to get more treatment, she just wanted to make sure she was ok, so she came back in to be evaluated again.). --00:47 Chelsi Infante R.N. Locked/Released at 02/03/2017 0:47 by Chelsi Infante R.N.
--- NOTE | 2017-02-03 00:48 | ED MAR SUMMARY ---
..... Medication Administration Record [facility] [address], [place] [id number] Patient: GREY BOSTON Visit ID: [id number] 31y, F Weight: 47.6 kg Height/Length: 63 in BMI: 18.6 ALLERGIES: No Known Drug Allergy
--- NOTE | 2017-02-03 00:48 | ED ORDER SUMMARY ---
..... Patient: GREY BOSTON OrderSheet [facility] VisitID: [id number] [address] [place] [address] 31y, F Registration Date/Time: 02/02/2017 ORDER SHEET Weight: 47.6 kg (stated) Allergies: No Known Drug Allergy GENERAL ORDERS: MEDICATION ORDERS: Toradol IM 60 mg (NOW) (22:17 02/02/2017 HBivens A.R.N.P.) (Ack 22:32 JSalcons R.N.) (Cancelled: Patient Left22:39 Aartis R.N.) IV FLUIDS: ORDER SHEET NOTES: [Electronically signed by Sheeba WintersR.N.P. (23:16 02/02/2017)] [Electronically signed by Chelsi Infante R.N. (00:47 02/03/2017)] [Electronically locked/signed by Chelsi Infante R.N. (00:47 02/03/2017)]
--- NOTE | 2017-02-03 00:48 | ED MED RECONCILIATION SUMMARY ---
Patient: GREY BOSTON Medication Reconciliation Report [facility] VisitID: [id number] [address] [place] [address] 31y, F Registration Date/Time: 02/02/2017 Weight: 47.6 kg Height/Length: 63 in. BMI: 18.6 ALLERGIES: No Known Drug Allergy The patient's Home Medications are listed below: THE FOLLOWING MEDICATIONS NEED TO BE RECONCILED: OxyCODONE HCl Oral (15 mg), 2x a day The source(s) of the original Home Medication information: Not obtained. The following Medications were given to the patient in the Emergency Department: None. The following Medications were prescribed to the patient: None.
== END 2017-02-02 22:39 | disposition left against medical advice (07) ==
LOC: ED SRH 21:48
DX: F41.1 Generalized anxiety disorder (principal)